=== PATIENT | female | born 1940 | race Caucasian/White ===

== ENCOUNTER 2017-12-08 10:31 | Outpatient (CLI) | payer MEDICARE, OTHER ==
--- NOTE | 2017-12-09 15:47 | Mammography Report ---
DIGITAL SCREENING MAMMOGRAM: 12/08/2017 CLINICAL INDICATION: A 77-year-old, for screening. COMPARISON: Films from [place], [place] dated 09/04/2014, 07/08/2011. TECHNIQUE: Routine CC and MLO projections were obtained of the breasts. FINDINGS: The breasts again demonstrate scattered fibroglandular densities. Coarse and punctate, typically benign calcifications are present. No suspicious masses, clustered microcalcifications, or regions of architectural distortion are identified. IMPRESSION: BENIGN FINDINGS. RECOMMENDATION: ROUTINE ANNUAL SCREENING UNLESS OTHERWISE CLINICALLY INDICATED. BIRADS CATEGORY 2-BENIGN FINDINGS. STANDARD QUALIFYING STATEMENTS: 1. This examination was reviewed with the aid of Computer-Aided Detection (CAD). 2. A negative or benign imaging report should not delay biopsy if clinically suspicious findings are present. Consider surgical consultation if warranted. More than 5% of cancers are not identified by imaging. 3. Dense breasts may obscure an underlying neoplasm. TD: 12/09/2017 15:46
== END 2017-12-08 10:32 | disposition home or self-care (01) ==
LOC: DI 10:31
PROVIDERS: ATTEND Registered Nurse
DX: Z12.31 Encounter for screening mammogram for malignant neoplasm of breast (principal)
CPT/HCPCS: 77067

== ENCOUNTER 2019-02-20 12:57 | Outpatient (CLI) | payer MEDICARE, BC ==
--- NOTE | 2019-02-20 14:41 | XRAY Report ---
Reason: PAIN IN RIGHT WRIST Procedure Date: 02/20/2019 Accession Number: [id number] / [id number] Procedure: XR - Wrist 4 View LT CPT Code: FULL RESULT: EXAM: LEFT WRIST RADIOGRAPHY EXAM DATE: 02/20/2019 01:23 PM. CLINICAL HISTORY: Chronic finger numbness, wrist pain when flexing the left wrist. Trauma. COMPARISON: None. TECHNIQUE: 4 views. FINDINGS: Bones: Bones appear qualitatively osteopenic which limits sensitivity for fracture, no fracture detected. No aggressive osseous lesion is seen. Joints: Normal. No subluxations. Soft Tissues: Normal. No soft tissue swelling. IMPRESSION: No fracture or dislocation and no significant degenerative changes. Subjectively osteopenic. RADIA
== END 2019-02-20 12:58 | disposition home or self-care (01) ==
LOC: DI 12:57
PROVIDERS: ATTEND Registered Nurse
DX: M25.531 Pain in right wrist (principal)

== ENCOUNTER 2020-12-15 09:57 | Outpatient (CLI) | payer MEDICARE, BC ==
[2020-12-15] MEDS ORDERED: IOPAMIDOL-300 50 ML VIAL ONE (10:24)
[2020-12-15] MEDS ORDERED: IOVERSOL 320 100 ML VIAL IVP ONE ×2 (10:24→11:38)
[2020-12-15 10:27] LABS: ALBUMIN 4.3 g/dL (3.2-5.5); ALBUMIN/GLOBULIN RATIO 1.6 (1.0-2.2); CALCIUM 9.4 mg/dL (8.5-10.3); CREATININE 0.9 mg/dL (0.4-1.0)
[2020-12-15] MEDS ORDERED: IOPAMIDOL-300 50 ML VIAL PO ONE (11:38)
--- NOTE | 2020-12-15 13:17 | CT Report ---
PROCEDURE: Abdomen/Pelvis W INDICATIONS: LLQ PAIN TECHNIQUE: After the administration of intravenous contrast, 5 mm thick sections acquired from the diaphragms to the symphysis. 2.5 mm thick coronal and sagittal reformats were acquired. Optional 10-minute delay ed imaging may be performed from the kidneys to the bladder. For radiation dose reduction, the follo wing was used: automated exposure control, adjustment of mA and/or kV according to patient size. COMPARISON: None FINDINGS: Image quality: Excellent. ABDOMEN: Lung bases: Lung bases are clear. Heart size is normal. No pericardial effusion. Inferior ribs ar e intact. No basal pleural effusions or pneumothorax. Solid organs: Liver is normal in size and enhancement, without lacerations. Gallbladder appears nor mal. Biliary system is non-dilated. Pancreas enhances normally, without transection. Spleen is nor mal in size and enhancement, without lacerations. No adrenal hematomas. Both kidneys enhance normal ly, without hydronephrosis or lacerations. Peritoneum and bowel: No free fluid or air. Unenhanced bowel loops demonstrate normal wall thicknes s and caliber. Nodes and vessels: No retroperitoneal or mesenteric adenopathy. Aorta and inferior vena cava are no rmal in size and enhancement. Miscellaneous: No ventral hernias. PELVIS: Genitourinary: Bladder wall thickness is normal. Miscellaneous: No inguinal hernias or adenopathy. There is a body wall herniation, left lower quadr ant, best seen on CT series 4 image 63. This extends through a body wall defect that measures up to 2 .0 cm in maximal dimension. Bones: Pelvic ring and hip joints appear intact. No vertebral compression fractures. IMPRESSION: No mass lesion within the peritoneal space is found. Rather, at the left lower quadrant body wall just beneath and anterior to the anterior superior iliac spine there is a 2.0 x 5.9 cm amadna iation of fat through a 2.0 cm body wall defect with the fat showing no sign of incarceration or stra ngulation Prominent sigmoid diverticulosis is present but no acute diverticulitis is seen. Reviewed by: Howard Ortega MD on 12/15/2020 1:16 PM PDT Approved by: Howard Ortega MD on 12/15/2020 1:16 PM PDT Station ID: [id number]
== END 2020-12-15 09:58 | disposition home or self-care (01) ==
LOC: DI 09:57
PROVIDERS: ATTEND Nurse Practitioner Family
DX: R10.32 Left lower quadrant pain (principal); K46.9 Unspecified abdominal hernia without obstruction or gangrene; K57.30 Diverticulosis of large intestine without perforation or abscess without bleeding
CPT/HCPCS: 36415; 74177; 80053; Q9967

== ENCOUNTER 2021-01-05 14:43 | Outpatient (CLI) | payer MEDICARE, BC ==
--- NOTE | 2021-01-06 10:00 | Mammography Report ---
BILATERAL DIGITAL SCREENING MAMMOGRAM 3D/2D WITH EXAGGERATED CC: 01/05/2021 CLINICAL: Routine screening. Routine screening. Comparison is made to exams dated: 12/08/2017 mammogram - [facility] and 11/05/2013 mammogram - [facility]. There are scattered fibroglandular elements in both breasts. No significant masses, calcifications, or other findings are seen in either breast. There has been no significant interval change. IMPRESSION: NEGATIVE There is no mammographic evidence of malignancy. A 1 year screening mammogram is recommended. This exam was interpreted at Station ID: [id number]. NOTE: For mammograms, a report in lay terms will be sent to the patient. Approximately 15% of breast malignancies will not be visualized mammographically. In the management of a palpable breast mass, a negative mammogram must not discourage biopsy of a clinically suspicious lesion. Electronically Signed By: Johnny Mcfadden M.D. ar/penrad:01/05/2021 15:44:58 ACR BI-RADS Category 1: Negative 3341F PARENCHYMAL PATTERN: (A) - The breast(s) demonstrate(s) scattered fibroglandular densities. BI-RADS CATEGORY: (1) - 1 RECOMMENDATION: (ANNUAL) - Recommend routine annual screening mammography. [id number] 1 year screening LATERALITY: (B)
== END 2021-01-05 14:44 | disposition home or self-care (01) ==
LOC: DI.S 14:43
PROVIDERS: ATTEND Nurse Practitioner Family
DX: Z12.31 Encounter for screening mammogram for malignant neoplasm of breast (principal)

== ENCOUNTER 2021-04-21 10:46 | Outpatient (CLI) | payer MEDICARE, BC ==
[2021-04-21 15:40] LABS: ALBUMIN 4.4 g/dL (3.2-5.5); ALBUMIN/GLOBULIN RATIO 2.1 (1.0-2.2); ALKALINE PHOSPHATASE 64 IU/L (42-121); ALT ALANINE AMINOTRANSFERASE 16 IU/L (10-60); AST ASPARTATE AMINOTRANSFERASE 18 IU/L (10-42); BILIRUBIN,TOTAL 1.8 mg/dL (0.2-1.0); BUN - BLOOD UREA NITROGEN 22 mg/dL (6-20); CALCIUM 9.3 mg/dL (8.5-10.3); CARBON DIOXIDE - CO2 27 mmol/L (21-32); CHLORIDE 105 mmol/L (101-111); CHOL/HDL RATIO 3.7 (<4.4); CHOLESTEROL 261 mg/dL; CREATININE 0.7 mg/dL (0.4-1.0); GFR - MDRD 81 (>89); GLUCOSE 98 mg/dL (70-100); HDL CHOLESTEROL 70 mg/dL; LDL CHOLESTEROL,CALCULATED 168 mg/dL; LDL/HDL RATIO 2.4 (<4.4); POTASSIUM 4.2 mmol/L (3.5-5.0); SODIUM 140 mmol/L (135-145); TOTAL PROTEIN 6.5 g/dL (6.7-8.2); TRIGLYCERIDES 115 mg/dL; VLDL CHOLESTEROL 23 mg/dL
[2021-04-22 12:13] LABS: HEPATITIS C ANTIBODY NON-REACTIVE (NON-REACTIVE)
[2021-04-22 15:31] LABS: HIV AG/AB 4TH GEN NON-REACTIVE (NON-REACTIVE)
== END 2021-04-21 10:47 | disposition home or self-care (01) ==
LOC: LAB.S 10:46
PROVIDERS: ATTEND Nurse Practitioner Family
DX: Z13.1 Encounter for screening for diabetes mellitus (principal); Z13.220 Encounter for screening for lipoid disorders; Z11.4 Encounter for screening for human immunodeficiency virus [HIV]; Z11.59 Encounter for screening for other viral diseases
CPT/HCPCS: 36415; 80053; 80061; 86803; G0475; 83721; 87389

== ENCOUNTER 2021-10-09 10:58 | Outpatient (CLI) | payer MEDICARE, BC ==
--- NOTE | 2021-10-09 16:09 | XRAY Report ---
PROCEDURE: Hip w/Pelvis 2-3V LT INDICATIONS: PAIN IN LEFT HIP JOINT TECHNIQUE: AP pelvis with lateral view of the left hip. COMPARISON: None. FINDINGS: Bones: No fractures or dislocations. There is mild axial joint space narrowing in the hips bilateral ly. Mild collar osteophytosis also demonstrated bilaterally. Pelvic ring appears intact. No suspicio us bony lesions. Soft tissues: The visualized bowel gas pattern is normal. There are small calcifications adjacent t o the left ischial tuberosity which may represent small avulsion fragments. IMPRESSION: 1. No fracture or dislocation. 2. 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 3. Suspected small avulsion fragments adjacent to the left ischial tuberosity. Reviewed by: Fredyd Ness MD on 10/09/2021 4:07 PM PST Approved by: Freddy Ness MD on 10/09/2021 4:07 PM [facility] Station ID: [id number]
== END 2021-10-09 10:59 | disposition home or self-care (01) ==
LOC: DI 10:58
PROVIDERS: ATTEND Nurse Practitioner Family
DX: M16.0 Bilateral primary osteoarthritis of hip (principal); R93.7 Abnormal findings on diagnostic imaging of other parts of musculoskeletal system